=== PATIENT | male | born 1975 | race Caucasian/White ===

== ENCOUNTER 2017-03-12 08:35 | Emergency (ER) | payer BC ==
[2017-03-12 10:21] VITALS: BP 274/124
--- NOTE | 2017-03-12 10:24 | UC ---
Skin Complaint HPI - HPI Summary HPI Summary: PT HAS HAD ITCHY SKIN RASH SINCE 07/2016. SKIN IS IRRITATED, DRY AND ITCH ON HANDS, BACK, ARMS AND LEGS. WENT TO [facility] 12/2016 AND [place] FOR FUNGUS/YEAST WITH NO IMPROVEMENT. HAD SEVERAL TICK BITES LAST SUMMER. WHILE IN ROOM BP WAS FOUND TO BE ELEVATED AND PT DEVELOPED DIZZINESS AND MALAISE. DENIES H/O HTN BUT DOES NOT SEE A DOCTOR. DENIES CP, SOB, NAUSEA. HANDS FEEL SWEATY. - History of Current Complaint Chief Complaint: UCRash Time Seen by Provider: 03/12/17 10:14 Stated Complaint: RASH Hx Obtained From: Patient Onset/Duration: Gradual Onset, Lasting Weeks, Still Present Timing: Constant Onset Severity: Moderate Current Severity: Moderate Pain Intensity: 0 Pain Scale Used: 0-10 Numeric Location: Diffuse Character: Pruritus Aggravating: Nothing Alleviating: Nothing Associated Signs & Symptoms: Positive: Rash. Negative: Fever - Allergy/Home Medications Allergies/Adverse Reactions: Allergies Allergy/AdvReac Type Severity Reaction Status Date / Time No Known Allergies Allergy Verified 02/02/16 12:48 Home Medications: Home Medications Multiple Vitamin [Multi Vitamin] 1 tab PO DAILY 03/12/17 [History Confirmed ] Review of Systems Constitutional: Other - MALAISE Skin: Rash Respiratory: Negative Cardiovascular: Negative Gastrointestinal: Negative Neurological: Other - DIZZY All Other Systems Reviewed And Are Negative: Yes PMH/Surg Hx/FS Hx/Imm Hx Previously Healthy: Yes Endocrine History Of: Denies: Diabetes, Thyroid Disease Cardiovascular History Of: Denies: Cardiac Disorders, Hypertension Respiratory History Of: Denies: COPD, Asthma GI/ History Of: Denies: Ulcer - Surgical History Surgical History: Yes Surgery Procedure, Year, and Place: appendectomy; R knee post-infection - Family History Known Family History: Positive: None Negative: Hypertension, Diabetes - Social History Alcohol Use: Daily Alcohol Amount: 8 drinks per day, beer / wine Substance Use Type: None Smoking Status (MU): Never Smoked Tobacco Physical Exam Triage Information Reviewed: Yes Appearance: No Pain Distress, Well-Nourished, Ill-Appearing - LOOKS UNCOMFORTABLE Vital Signs: Initial Vital Signs Temp 97.7 F 03/12/17 09:42 Pulse 65 03/12/17 09:42 Resp 18 03/12/17 09:42 BP 172/114 03/12/17 09:42 Pulse Ox 100 03/12/17 09:42 Vital Signs Reviewed: Yes Eyes: Positive: Conjunctiva Clear ENT: Positive: Hearing grossly normal Neck: Positive: Supple Respiratory Exam: Normal Abdomen Description: Positive: Nontender, Soft Musculoskeletal: Positive: No Edema Neurological: Positive: Alert Psychological: Positive: Age Appropriate Behavior Diagnostics - EKG Cardiac Rate: NL - 99 BPM Cardiac Rhythm: Sinus: Normal Ectopy: None ST Segment: Normal Course/Dx - Course Course Of Treatment: WHILE HERE BP WAS FOUND TO BE SIGNIFICANTLY ELEVATED AND PT DEVELOPED MALAISE AND DIZZINESS. TO [facility] BY AMBULANCE. - Diagnoses Provider Diagnoses: DIZZY, ELEVATED BP - Physician Notification/Consults Discussed Patient Care With: GLADIS GRIMM Time Discussed With Above Provider: 10:21 - TO [facility] BY AMBULANCE Discharge - Discharge Plan Condition: Stable Disposition: TRANS HIGHER LVL OF CARE FAC Referrals: No Primary Care Phys,NOPCP [Primary Care Provider] -
== END 2017-03-12 10:43 | disposition short-term general hospital (02) ==
LOC: UCEAST 08:35
DX: R42 Dizziness and giddiness (principal); R21 Rash and other nonspecific skin eruption; R03.0 Elevated blood-pressure reading, without diagnosis of hypertension; R53.81 Other malaise
CPT/HCPCS: 93005; 99213; G0463

== ENCOUNTER 2017-03-12 11:02 | Emergency (ER) | payer BC ==
[2017-03-12 11:41] LABS: Hematocrit 49 % (42-52); Hemoglobin 16.7 g/dl (14.0-18.0); Mean Corpuscular HGB Conc 34 g/dl (31-36); Mean Corpuscular Hemoglobin 31 pg (27-31); Mean Corpuscular Volume 91 fL (80-94); Mean Platelet Volume 9 um3 (7.4-10.4); Red Blood Count 5.37 10^6/ul (4.0-5.4); Red Cell Distribution Width 14 % (10.5-15); White Blood Count 7.3 10^3/ul (3.5-10.8)
[2017-03-12] MEDS ORDERED: LORazepam INJ* 2 MG/ML 1 ML VIAL IV ONE (11:49)
[2017-03-12 11:51] LABS: Albumin 4.9 g/dL (3.2-5.2); BUN/Creatinine Ratio 11.9 (8-20); Calcium 10.2 mg/dL (8.6-10.3); EGFR African American 96.4 (>60); EGFR Non-African American 74.9 (>60); Globulin 3.5 g/dL (2-4); Potassium 4.3 mmol/L (3.5-5.0); Total Bilirubin 1.1 mg/dL (0.2-1.0); Total Protein 8.4 g/dL (6.4-8.9)
[2017-03-12 12:05] LABS: T4 6.67 mcg/mL (6.09-12.23)
[2017-03-12 12:21] LABS: Urine Bilirubin Negative (Negative); Urine Glucose Negative (Negative); Urine Nitrite Negative (Negative)
[2017-03-12 14:10] VITALS: BP 143/89
--- NOTE | 2017-03-12 15:06 | ED ---
Mendez Rose Billy, scribed for Raúl Boles MD on 03/12/17 at 1121 . Hypertension - HPI Summary HPI Summary: Patient is a 41 year-old male coming to [facility] from [facility] for evaluation of hypertension and dizziness. He states that he visited [facility] originally for evaluation of an itchy rash on his back and extremities. However, as they were administering tests at the Urgent Care, he began to feel dizzy and near- syncope. At that time, systolic blood pressure was approximately 190. He felt no significant discomfort en route to the ED via EMS. He drinks 8-12 drinks a day. - History of Current Complaint Chief Complaint: EDDizziness Stated Complaint: DIZZY , COMMING FROM [facility] Time Seen by Provider: 03/12/17 11:09 Hx Obtained From: Patient Timing: Constant Reported Blood Pressure Prior To Arrival: 190 systolic Aggravating Factor(s): Other: - as the [facility] staff were administering tests Alleviating Factor(s): Rest Associated Signs & Symptoms: Dizziness - Allergies/Home Medications Allergies/Adverse Reactions: Allergies Allergy/AdvReac Type Severity Reaction Status Date / Time No Known Allergies Allergy Verified 03/12/17 11:17 PMH/Surg Hx/FS Hx/Imm Hx Endocrine/Hematology History: Denies: Hx Diabetes, Hx Thyroid Disease Cardiovascular History: Denies: Hx Hypertension Respiratory History: Denies: Hx Asthma, Hx Chronic Obstructive Pulmonary Disease (COPD) GI History: Denies: Hx Ulcer - Surgical History Surgery Procedure, Year, and Place: appendectomy; R knee post-infection Infectious Disease History: Yes Infectious Disease History: Denies: Hx Clostridium Difficile, Hx Hepatitis, Hx Human Immunodeficiency Virus (HIV), Hx of Known/Suspected MRSA, Hx Shingles, Hx Tuberculosis, Hx Known/ Suspected VRE, Hx Known/Suspected VRSA, History Other Infectious Disease, Traveled Outside the [place] in Last 30 Days - Family History Known Family History: Positive: None Negative: Hypertension, Diabetes - Social History Alcohol Use: Daily Alcohol Amount: 8 drinks per day, beer / wine Substance Use Type: Reports: None Smoking Status (MU): Never Smoked Tobacco Review of Systems Positive: Other - HTN Neurological: Other - dizziness All Other Systems Reviewed And Are Negative: Yes Physical Exam Triage Information Reviewed: Yes Vital Signs On Initial Exam: Initial Vitals Temp Pulse Resp BP Pulse Ox 98.9 F 80 18 183/107 100 03/12/17 11:11 03/12/17 11:11 03/12/17 11:11 03/12/17 11:11 03/12/17 11:11 Vital Signs Reviewed: Yes Appearance: Positive: Well-Appearing, No Pain Distress Skin: Positive: Warm, Skin Color Reflects Adequate Perfusion Head/Face: Positive: Normal Head/Face Inspection Eyes: Positive: Normal ENT: Positive: Normal ENT inspection Neck: Positive: Supple, Nontender Respiratory/Lung Sounds: Positive: Clear to Auscultation, Breath Sounds Present Cardiovascular: Positive: RRR Abdomen Description: Positive: Nontender, Soft Musculoskeletal: Positive: Normal Neurological: Positive: Sensory/Motor Intact, Alert, Oriented to Person Place, Time, Other - Fine intention tremor. Psychiatric: Positive: Affect/Mood Appropriate - [place] Coma Scale Coma Scale Total: 15 Diagnostics - Vital Signs Vital Signs Temp Pulse Resp BP Pulse Ox 03/12/17 11:13 98.9 F 81 18 183/107 100 03/12/17 11:11 98.9 F 80 18 183/107 100 - Laboratory Lab Results: Lab Results 03/12/17 03/12/17 03/12/17 Range/Units 10:26 10:26 10:26 WBC 7.3 (3.5-10.8) 10^3/ul RBC 5.37 (4.0-5.4) 10^6/ul Hgb 16.7 (14.0-18.0) g/dl Hct 49 (42-52) % MCV 91 (80-94) fL MCH 31 (27-31) pg MCHC 34 (31-36) g/dl RDW 14 (10.5-15) % Plt Count 230 (150-450) 10^3/ul MPV 9 (7.4-10.4) um3 Neut % (Auto) 63.0 (38-83) % Lymph % (Auto) 18.6 L (25-47) % [place] % (Auto) 10.8 H (1-9) % Eos % (Auto) 5.2 (0-6) % Baso % (Auto) 2.4 H (0-2) % Absolute Neuts (auto) 4.6 (1.5-7.7) 10^3/ul Absolute Lymphs (auto) 1.3 (1.0-4.8) 10^3/ul Absolute Monos (auto) 0.8 (0-0.8) 10^3/ul Absolute Eos (auto) 0.4 (0-0.6) 10^3/ul Absolute Basos (auto) 0.2 (0-0.2) 10^3/ul Absolute Nucleated RBC 0.02 10^3/ul Nucleated RBC % 0.3 INR (Anticoag Therapy) 0.98 (0.89-1.11) Sodium 133 (133-145) mmol/L Potassium 4.3 (3.5-5.0) mmol/L Chloride 97 L (101-111) mmol/L Carbon Dioxide 25 (22-32) mmol/L Anion Gap 11 (2-11) mmol/L BUN 13 (6-24) mg/dL Creatinine 1.09 (0.67-1.17) mg/dL Est GFR ( Amer) 96.4 (>60) Est GFR (Non-Af Amer) 74.9 (>60) BUN/Creatinine Ratio 11.9 (8-20) Glucose 109 H (70-100) mg/dL Lactic Acid (0.5-2.0) mmol/L Calcium 10.2 (8.6-10.3) mg/dL Total Bilirubin 1.10 H (0.2-1.0) mg/dL AST 35 (13-39) U/L ALT 53 H (7-52) U/L Alkaline Phosphatase 14 L (34-104) U/L Troponin I 0.00 (<0.04) ng/mL Total Protein 8.4 (6.4-8.9) g/dL Albumin 4.9 (3.2-5.2) g/dL Globulin 3.5 (2-4) g/dL Albumin/Globulin Ratio 1.4 (1-3) Thyroxine (T4) 6.67 (6.09-12.23) mcg/mL Urine Color Urine Appearance Urine pH (5-9) Ur Specific [place] (1.010-1.030) Urine Protein (Negative) Urine Ketones (Negative) Urine Blood (Negative) Urine Nitrate (Negative) Urine Bilirubin (Negative) Urine Urobilinogen (Negative) Ur Leukocyte Esterase (Negative) Urine Glucose (Negative) 03/12/17 03/12/17 Range/Units 10:26 12:00 WBC (3.5-10.8) 10^3/ul RBC (4.0-5.4) 10^6/ul Hgb (14.0-18.0) g/dl Hct (42-52) % MCV (80-94) fL MCH (27-31) pg MCHC (31-36) g/dl RDW (10.5-15) % Plt Count (150-450) 10^3/ul MPV (7.4-10.4) um3 Neut % (Auto) (38-83) % Lymph % (Auto) (25-47) % [place] % (Auto) (1-9) % Eos % (Auto) (0-6) % Baso % (Auto) (0-2) % Absolute Neuts (auto) (1.5-7.7) 10^3/ul Absolute Lymphs (auto) (1.0-4.8) 10^3/ul Absolute Monos (auto) (0-0.8) 10^3/ul Absolute Eos (auto) (0-0.6) 10^3/ul Absolute Basos (auto) (0-0.2) 10^3/ul Absolute Nucleated RBC 10^3/ul Nucleated RBC % INR (Anticoag Therapy) (0.89-1.11) Sodium (133-145) mmol/L Potassium (3.5-5.0) mmol/L Chloride (101-111) mmol/L Carbon Dioxide (22-32) mmol/L Anion Gap (2-11) mmol/L BUN (6-24) mg/dL Creatinine (0.67-1.17) mg/dL Est GFR ( Amer) (>60) Est GFR (Non-Af Amer) (>60) BUN/Creatinine Ratio (8-20) Glucose (70-100) mg/dL Lactic Acid 1.6 (0.5-2.0) mmol/L Calcium (8.6-10.3) mg/dL Total Bilirubin (0.2-1.0) mg/dL AST (13-39) U/L ALT (7-52) U/L Alkaline Phosphatase (34-104) U/L Troponin I (<0.04) ng/mL Total Protein (6.4-8.9) g/dL Albumin (3.2-5.2) g/dL Globulin (2-4) g/dL Albumin/Globulin Ratio (1-3) Thyroxine (T4) (6.09-12.23) mcg/mL Urine Color Straw Urine Appearance Clear Urine pH 8.0 (5-9) Ur Specific [place] 1.005 L (1.010-1.030) Urine Protein Negative (Negative) Urine Ketones Trace H (Negative) Urine Blood Negative (Negative) Urine Nitrate Negative (Negative) Urine Bilirubin Negative (Negative) Urine Urobilinogen Negative (Negative) Ur Leukocyte Esterase Negative (Negative) Urine Glucose Negative (Negative) Result Diagrams: 03/12/17 10:26 03/12/17 10:26 Lab Statement: Any lab studies that have been ordered have been reviewed, and results considered in the medical decision making process. - EKG 1113 EKG Interpretation: NSR 82 bpm, no STEMI Hypertension Course/Dx - Course Course Of Treatment: Mr. Faith reportedly had hives that resolved with benadryl. His itching certainly did. He was quite hypertensive at [facility] and modeerately hypeertensive on arrival here. He drinks about a twelve pack a day (he drank less than half of that yesterday) and is a bit tremulous here. I gave him ativan while checking labs and such and he improved. His BP and HR both fell. We talked about his drinking and I offered to try to get him admitted medically if he were willing to quit but he refused. i recommended F/U. - Diagnoses Provider Diagnoses: Allergic reaction, Alcohol abuse Discharge - Discharge Plan Condition: Stable Disposition: HOME Patient Education Materials: Abuse of Alcohol (ED), General Allergic Reaction ( ED) Referrals: [facility] PHYSICIAN REFERRAL [Outside] The documentation as recorded by the Mendez galo Billy accurately reflects the service I personally performed and the decisions made by me, Raúl Boles MD.
== END 2017-03-12 14:15 | disposition home or self-care (01) ==
LOC: ED 11:02
DX: T78.40XA Allergy, unspecified, initial encounter (principal); I10 Essential (primary) hypertension; R42 Dizziness and giddiness; X58.XXXA Exposure to other specified factors, initial encounter; F10.10 Alcohol abuse, uncomplicated
CPT/HCPCS: 36415; 80053; 81003; 83605; 84436; 84484; 85025; 85610; 93005; 99282; J2060

== ENCOUNTER 2018-01-03 16:02 | Emergency (ER) | payer BC ==
[2018-01-03] MEDS ORDERED: Famotidine IV* 10 MG/ML 2 ML (20 mg) IV SLOW PU ONE (16:17)
[2018-01-03] MEDS ORDERED: Acetaminophen TAB* 325 MG PO ONE (16:53)
[2018-01-03 17:18] LABS: ABS Basophils 0.1 10^3/ul (0-0.2); ABS Eosinophils 0.2 10^3/ul (0-0.6); ABS Lymphocytes 0.9 10^3/ul (1.0-4.8); ABS Monocytes 0.2 10^3/ul (0-0.8); ABS Neutrophils 10.2 10^3/ul (1.5-7.7); ABS Nucleated RBC 0 10^3/ul; Eosinophil % 1.3 % (0-6); Hematocrit 42 % (42-52); Hemoglobin 14.5 g/dl (14.0-18.0); Lymphocyte % 7.6 % (25-47); Mean Corpuscular HGB Conc 35 g/dl (31-36); Mean Corpuscular Hemoglobin 32 pg (27-31); Mean Corpuscular Volume 92 fL (80-94); Mean Platelet Volume 8 um3 (7.4-10.4); Nucleated Red Blood Cells % 0; Platelet Count 223 10^3/ul (150-450); Red Blood Count 4.55 10^6/ul (4.0-5.4); Red Cell Distribution Width 13 % (10.5-15); White Blood Count 11.6 10^3/ul (3.5-10.8)
[2018-01-03 17:28] LABS: INR 0.94 (0.77-1.02)
[2018-01-03 17:35] LABS: EGFR Non-African American 76.2 (>60)
--- NOTE | 2018-01-03 17:46 | RAD ---
HISTORY: Allergic reaction, hypertension COMPARISONS: July 20, 2010 VIEWS: 1: frontal portable view of the chest at 5:10 PM FINDINGS: LINES AND TUBES: None. CARDIOMEDIASTINAL SILHOUETTE: The cardiomediastinal silhouette is normal for portable technique. PLEURA: The costophrenic angles are sharp. No pleural abnormalities are noted. LUNG PARENCHYMA: There is faint alveolar opacification of the right upper lung. ABDOMEN: The upper abdomen is clear. There is no subphrenic gas. BONES AND SOFT TISSUES: No bone or soft tissue abnormalities are noted. IMPRESSION: RIGHT UPPER LUNG ATELECTASIS VERSUS EARLY CONSOLIDATION. RECOMMEND FOLLOW-UP UNTIL RESOLUTION TO EXCLUDE UNDERLYING PULMONARY PARENCHYMAL PATHOLOGY.
[2018-01-03 19:48] LABS: Urine Appearance Clear; Urine Blood Negative (Negative); Urine Color Straw; Urine Ketones Trace (Negative); Urine Protein Negative (Negative); Urine Specific Gravity 1.009 (1.010-1.030); Urine Urobilinogen Negative (Negative)
[2018-01-03] MEDS ORDERED: Atenolol TAB* 25 MG PO ONE (20:13)
[2018-01-03] MEDS ORDERED: LORazepam TAB(*) 1 MG PO ONE (20:18)
[2018-01-03 21:20] VITALS: BP 152/92
--- NOTE | 2018-01-04 20:42 | ED ---
Vishnu Rose Natalie, scribed for Cintia Merino MD on 01/03/18 at 1704 . Dizziness - HPI Summary HPI Summary: The patient is 42 y/o M BIBA to ED c/o dizziness. 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 He and his went to [employer], where he was having various wine samples. He felt unwell, especially after the third one. He felt dizzy and lightheaded while driving home, so he pulled over and his drove. When he returned to the hotel, he tried to nap but couldnt fall asleep because he was too uncomfortable, noise was bothering him, and he had bad indigestion. He felt his heart rate increase with palpitations, and had CP. He says his arms felt like they were in a vice, and he couldnt feel his left arm. He then started to shake uncontrollably, and thats when his called 911. His said he was alert and oriented the whole time, and he was able to answer all the questions. He was able to see without LOC, but his vision was limited as his eyes were dilated. He also feels hot, and he has a rash all over his body. He currently has a headache and feels anxious. The patient denies URI symptoms, swollen/itchy throat, and ear ache. He was not wheezing today, which he is aware of how that feels because that is his allergic reaction to cats. He was last in an ambulance a year ago for a similar reason with a rash, but was not as severe and was easily treated with Benadryl. He has hx of HTN, but does not take the medication because he claims it gives him headaches. He doesnt take any other daily medications. He used cannabis yesterday. He has had an appendectomy. His PCP is Dr. Haas. Upon exiting room BP is 156/101, HR 112 sinus tachycardia, O2sat 99% on room air, respirations 16. - History Of Current Complaint Chief Complaint: EDAllergicReaction Stated Complaint: ALLERGIC REACTION Time Seen by Provider: 01/03/18 16:16 Hx Obtained From: Patient Onset/Duration: Still Present, Suddenly Timing: Constant Severity Initially: Severe Severity Currently: Moderate Character: Lightheaded, Dizzy Aggravating Factor(s): Nothing Alleviating Factor(s): Nothing Associated Signs And Symptoms: Positive: Chest Pain, Palpitations, Other: - rash all abdiaziz body, headache, unable to feel left arm, dilated eyes, no LOC, no URI, no ear ache, no throat symptoms - Allergies/Home Medications Allergies/Adverse Reactions: Allergies Allergy/AdvReac Type Severity Reaction Status Date / Time No Known Allergies Allergy Verified 03/12/17 11:17 PMH/Surg Hx/FS Hx/Imm Hx Previously Healthy: Yes Endocrine/Hematology History: Denies: Hx Diabetes, Hx Thyroid Disease Cardiovascular History: Reports: Hx Hypertension Respiratory History: Denies: Hx Asthma, Hx Chronic Obstructive Pulmonary Disease (COPD) GI History: Denies: Hx Ulcer - Surgical History Surgery Procedure, Year, and Place: appendectomy; R knee post-infection Infectious Disease History: No Infectious Disease History: Denies: Hx Clostridium Difficile, Hx Hepatitis, Hx Human Immunodeficiency Virus (HIV), Hx of Known/Suspected MRSA, Hx Shingles, Hx Tuberculosis, Hx Known/ Suspected VRE, Hx Known/Suspected VRSA, History Other Infectious Disease, Traveled Outside the [place] in Last 30 Days - Family History Known Family History: Positive: Hypertension Negative: Diabetes - Social History Alcohol Use: Daily Alcohol Amount: 8 drinks per day, beer / wine Substance Use Type: Reports: None Smoking Status (MU): Never Smoked Tobacco Review of Systems Positive: Other - noise bothering him. Negative: Sore Throat, Ear Ache Positive: Palpitations, Chest Pain Positive: Other - indigestion Neurological: Other - dizzy, lightheadedness Positive: Headache Positive: Anxious All Other Systems Reviewed And Are Negative: Yes Physical Exam Triage Information Reviewed: Yes Vital Signs On Initial Exam: Initial Vitals Temp Pulse Resp BP Pulse Ox 97.7 F 108 20 171/93 100 01/03/18 16:10 01/03/18 16:10 01/03/18 16:10 01/03/18 16:10 01/03/18 16:10 Vital Signs Reviewed: Yes Appearance: Positive: No Pain Distress, Well-Nourished, Ill-Appearing Skin: Positive: Warm, Other - erythematous rash on face, neck, and chest Head/Face: Positive: Normal Head/Face Inspection Eyes: Positive: Conjunctiva Clear ENT: Positive: Normal ENT inspection Neck: Positive: Supple Respiratory/Lung Sounds: Positive: Other - Lungs clear, Normal breath sounds, no respiratory distress Cardiovascular: Positive: Other - RRR, No murmur, pulses normal, brisk capillary refill Abdomen Description: Positive: Nontender, Soft Bowel Sounds: Positive: Present Musculoskeletal: Positive: Strength/ROM Intact Neurological: Positive: Other - Alert, muscle tone normal, facial symmetry, speech normal, sensory/motor intact Psychiatric: Positive: Normal Diagnostics - Vital Signs Vital Signs Temp Pulse Resp BP Pulse Ox 01/03/18 16:21 103 22 171/93 100 01/03/18 16:10 97.7 F 108 20 171/93 100 - Laboratory Lab Results: Lab Results 01/03/18 01/03/18 01/03/18 Range/Units 17:09 17:09 17:09 WBC 11.6 H (3.5-10.8) 10^3/ul RBC 4.55 (4.0-5.4) 10^6/ul Hgb 14.5 (14.0-18.0) g/dl Hct 42 (42-52) % MCV 92 (80-94) fL MCH 32 H (27-31) pg MCHC 35 (31-36) g/dl RDW 13 (10.5-15) % Plt Count 223 (150-450) 10^3/ul MPV 8 (7.4-10.4) um3 Neut % (Auto) 88.4 H (38-83) % Lymph % (Auto) 7.6 L (25-47) % [place] % (Auto) 2.1 (1-9) % Eos % (Auto) 1.3 (0-6) % Baso % (Auto) 0.6 (0-2) % Absolute Neuts (auto) 10.2 H (1.5-7.7) 10^3/ul Absolute Lymphs (auto) 0.9 L (1.0-4.8) 10^3/ul Absolute Monos (auto) 0.2 (0-0.8) 10^3/ul Absolute Eos (auto) 0.2 (0-0.6) 10^3/ul Absolute Basos (auto) 0.1 (0-0.2) 10^3/ul Absolute Nucleated RBC 0 10^3/ul Nucleated RBC % 0 INR (Anticoag Therapy) 0.94 (0.77-1.02) D-Dimer, Quantitative < 200 (Less Than 230) ng/mL Sodium 138 (133-145) mmol/L Potassium 3.7 (3.5-5.0) mmol/L Chloride 103 (101-111) mmol/L Carbon Dioxide 20 L (22-32) mmol/L Anion Gap 15 H (2-11) mmol/L BUN 11 (6-24) mg/dL Creatinine 1.07 (0.67-1.17) mg/dL Est GFR ( Amer) 97.9 (>60) Est GFR (Non-Af Amer) 76.2 (>60) BUN/Creatinine Ratio 10.3 (8-20) Glucose 103 H (70-100) mg/dL Lactic Acid (0.5-2.0) mmol/L Calcium 9.1 (8.6-10.3) mg/dL Total Bilirubin 0.40 (0.2-1.0) mg/dL AST 26 (13-39) U/L ALT 25 (7-52) U/L Alkaline Phosphatase 14 L (34-104) U/L Total Creatine Kinase 158 (10-223) U/L CK-MB (CK-2) 1.6 (0.6-6.3) ng/mL Troponin I 0.00 (<0.04) ng/mL Total Protein 7.4 (6.4-8.9) g/dL Albumin 4.3 (3.2-5.2) g/dL Globulin 3.1 (2-4) g/dL Albumin/Globulin Ratio 1.4 (1-3) TSH 1.50 (0.34-5.60) mcIU/mL Thyroxine (T4) 3.73 L (6.09-12.23) mcg/mL Urine Color Urine Appearance Urine pH (5-9) Ur Specific [place] (1.010-1.030) Urine Protein (Negative) Urine Ketones (Negative) Urine Blood (Negative) Urine Nitrate (Negative) Urine Bilirubin (Negative) Urine Urobilinogen (Negative) Ur Leukocyte Esterase (Negative) Urine Glucose (Negative) Urine Opiates Screen (None Detect) Ur Barbiturates Screen (None Detect) Ur Phencyclidine Scrn (None Detect) Ur Amphetamines Screen (None Detect) U Benzodiazepines Scrn (None Detect) Urine Cocaine Screen (None Detect) U Cannabinoids Screen (None Detect) Serum Alcohol 22 H (<10) mg/dL Influenza A (Rapid) (Negative) Influenza B (Rapid) (Negative) 01/03/18 01/03/18 01/03/18 Range/Units 17:09 19:25 19:25 WBC (3.5-10.8) 10^3/ul RBC (4.0-5.4) 10^6/ul Hgb (14.0-18.0) g/dl Hct (42-52) % MCV (80-94) fL MCH (27-31) pg MCHC (31-36) g/dl RDW (10.5-15) % Plt Count (150-450) 10^3/ul MPV (7.4-10.4) um3 Neut % (Auto) (38-83) % Lymph % (Auto) (25-47) % Towner % (Auto) (1-9) % Eos % (Auto) (0-6) % Baso % (Auto) (0-2) % Absolute Neuts (auto) (1.5-7.7) 10^3/ul Absolute Lymphs (auto) (1.0-4.8) 10^3/ul Absolute Monos (auto) (0-0.8) 10^3/ul Absolute Eos (auto) (0-0.6) 10^3/ul Absolute Basos (auto) (0-0.2) 10^3/ul Absolute Nucleated RBC 10^3/ul Nucleated RBC % INR (Anticoag Therapy) (0.77-1.02) D-Dimer, Quantitative (Less Than 230) ng/mL Sodium (133-145) mmol/L Potassium (3.5-5.0) mmol/L Chloride (101-111) mmol/L Carbon Dioxide (22-32) mmol/L Anion Gap (2-11) mmol/L BUN (6-24) mg/dL Creatinine (0.67-1.17) mg/dL Est GFR ( Amer) (>60) Est GFR (Non-Af Amer) (>60) BUN/Creatinine Ratio (8-20) Glucose (70-100) mg/dL Lactic Acid 3.4 H* (0.5-2.0) mmol/L Calcium (8.6-10.3) mg/dL Total Bilirubin (0.2-1.0) mg/dL AST (13-39) U/L ALT (7-52) U/L Alkaline Phosphatase (34-104) U/L Total Creatine Kinase (10-223) U/L CK-MB (CK-2) (0.6-6.3) ng/mL Troponin I (<0.04) ng/mL Total Protein (6.4-8.9) g/dL Albumin (3.2-5.2) g/dL Globulin (2-4) g/dL Albumin/Globulin Ratio (1-3) TSH (0.34-5.60) mcIU/mL Thyroxine (T4) (6.09-12.23) mcg/mL Urine Color Straw Urine Appearance Clear Urine pH 6.0 (5-9) Ur Specific [place] 1.009 L (1.010-1.030) Urine Protein Negative (Negative) Urine Ketones Trace H (Negative) Urine Blood Negative (Negative) Urine Nitrate Negative (Negative) Urine Bilirubin Negative (Negative) Urine Urobilinogen Negative (Negative) Ur Leukocyte Esterase Negative (Negative) Urine Glucose Negative (Negative) Urine Opiates Screen None detected (None Detect) Ur Barbiturates Screen None detected (None Detect) Ur Phencyclidine Scrn None detected (None Detect) Ur Amphetamines Screen None detected (None Detect) U Benzodiazepines Scrn None detected (None Detect) Urine Cocaine Screen None detected (None Detect) U Cannabinoids Screen Presumptive positive H (None Detect) Serum Alcohol (<10) mg/dL Influenza A (Rapid) (Negative) Influenza B (Rapid) (Negative) 01/03/18 Range/Units 21:43 WBC (3.5-10.8) 10^3/ul RBC (4.0-5.4) 10^6/ul Hgb (14.0-18.0) g/dl Hct (42-52) % MCV (80-94) fL MCH (27-31) pg MCHC (31-36) g/dl RDW (10.5-15) % Plt Count (150-450) 10^3/ul MPV (7.4-10.4) um3 Neut % (Auto) (38-83) % Lymph % (Auto) (25-47) % Towner % (Auto) (1-9) % Eos % (Auto) (0-6) % Baso % (Auto) (0-2) % Absolute Neuts (auto) (1.5-7.7) 10^3/ul Absolute Lymphs (auto) (1.0-4.8) 10^3/ul Absolute Monos (auto) (0-0.8) 10^3/ul Absolute Eos (auto) (0-0.6) 10^3/ul Absolute Basos (auto) (0-0.2) 10^3/ul Absolute Nucleated RBC 10^3/ul Nucleated RBC % INR (Anticoag Therapy) (0.77-1.02) D-Dimer, Quantitative (Less Than 230) ng/mL Sodium (133-145) mmol/L Potassium (3.5-5.0) mmol/L Chloride (101-111) mmol/L Carbon Dioxide (22-32) mmol/L Anion Gap (2-11) mmol/L BUN (6-24) mg/dL Creatinine (0.67-1.17) mg/dL Est GFR ( Amer) (>60) Est GFR (Non-Af Amer) (>60) BUN/Creatinine Ratio (8-20) Glucose (70-100) mg/dL Lactic Acid (0.5-2.0) mmol/L Calcium (8.6-10.3) mg/dL Total Bilirubin (0.2-1.0) mg/dL AST (13-39) U/L ALT (7-52) U/L Alkaline Phosphatase (34-104) U/L Total Creatine Kinase (10-223) U/L CK-MB (CK-2) (0.6-6.3) ng/mL Troponin I (<0.04) ng/mL Total Protein (6.4-8.9) g/dL Albumin (3.2-5.2) g/dL Globulin (2-4) g/dL Albumin/Globulin Ratio (1-3) TSH (0.34-5.60) mcIU/mL Thyroxine (T4) (6.09-12.23) mcg/mL Urine Color Urine Appearance Urine pH (5-9) Ur Specific [place] (1.010-1.030) Urine Protein (Negative) Urine Ketones (Negative) Urine Blood (Negative) Urine Nitrate (Negative) Urine Bilirubin (Negative) Urine Urobilinogen (Negative) Ur Leukocyte Esterase (Negative) Urine Glucose (Negative) Urine Opiates Screen (None Detect) Ur Barbiturates Screen (None Detect) Ur Phencyclidine Scrn (None Detect) Ur Amphetamines Screen (None Detect) U Benzodiazepines Scrn (None Detect) Urine Cocaine Screen (None Detect) U Cannabinoids Screen (None Detect) Serum Alcohol (<10) mg/dL Influenza A (Rapid) Negative (Negative) Influenza B (Rapid) Negative (Negative) Result Diagrams: 18 17:09 01/03/18 17:09 Lab Statement: Any lab studies that have been ordered have been reviewed, and results considered in the medical decision making process. - EKG 16:54 Cardiac Rate: Tachycardia EKG Rhythm: Sinus Tachycardia ST Segment: Non-Specific Ectopy: None EKG Interpretation: Nml AVIVCT. Nml QTc. Negative axis -3. EKG Comparison: No Significant Change - compared to EKG from 03/12/17 Re-Evaluation - Re-Evaluation First Eval Re-Evaluation Time: 17:00 - Per nurse, the patient's HR is in the 140s. Change: Worse - , Dizzy Course/Dx - Course Course Of Treatment: Allergies notes. Pt medications reviewed during this visit. High blood pressure noted. EMS gave the patient Benadryl, steroids, and ephinephrine BASEBALL [employer]OVE STUFFER. In the ED, the patient was given pepcid IV and additional IV fluids. Rapid rhythm observed on monitor at 16:54 based on monitor print out of tracing, shows sinus tachycardia at 132 BPM. I am aware of lactate of 3.4 at 17: 45. - Diagnoses Differential Diagnosis/HQI/PQRI: Anxiety, Dysrhythmia, Hyperventilation, Medication Reaction, Metabolic Abnormality, Other - allergic reaction, anaphylaxis, hypertensive crisis, arrhythmia Provider Diagnoses: Allergic reaction, Hypertension, poor control, Sinus tachycardia, Anxiety, Alcohol abuse Discharge - Discharge Plan Condition: Stable Disposition: HOME Patient Education Materials: At-Risk Alcohol Use (ED), Hypertension (ED), General Allergic Reaction (ED), Atelectasis (ED) Forms: *Work Release Referrals: German Haas MD [Primary Care Provider] - 2 Days Additional Instructions: We have given you instructions for allergic reaction, because this is what you were treated for in the ambulance based on your symptoms of dizziness and not feeling well and then a rash noted on your face and chest by the ambulance. Dr. Merino is not sure if you had a true allergic reaction or not. You were treated by the ambulance with epinephrine, benadryl, steroids and you were given pepcid in the ER to complete your treatment for possible allergic reaction. You noted that you were feeling very anxious and in the ER you heart rate was tachycardic (fast) and your blood pressure was elevated. Some blood pressures that were noted in the ER were 178/98, 156/105, 177/108, all very elevated. The fastest heart rate we documented was 144, which was sinus tachycardia on the EKG and lasted only seconds, but your heart rate was often above 100 during your time in the ER. Your lactic acid was elevated at 3.[address] Merino felt this was from having received the epinephrine. Your troponin, the enzyme that indicates possible heart damage was zero. Dr. Merino gave you copies of all of your labs and CXR that you should bring to Dr. Haas with these discharge instructions. Dr Merino gave you one dose of atenolol 12.5 mg orally for the hypertension and tachycardia. You will need definite follow up with Dr. Haas and re-initiation of anti-hypertensive treatment. Your chest xray showed atelectasis vs consolidation, and you did not have any acute upper respiratory symptoms or fever, so Dr. Merino felt this was more likely atelectasis, but it needs definite follow up with Dr. Haas. Your flu swab was negative. You alcohol was higher than you expected, at 22, and we discussed decreasing your alcohol intake with Dr. Haas's assistance. Dr. Merino dispensed one dose of ativan 0.5mg that you may take tonight or as needed for severe anxiety. Of note, Dr. Merino never heard wheezes or saw any hives. The redness in your face and chest diminished quickly after presentation to the ER, after the ambulance meds and the pepcid were given. Return to the ER if you have any new or worsening symptoms, including but not limited to, fever, chest pain, cough, dizziness, rash, or vomiting. The documentation as recorded by the Vishnu galo Natalie accurately reflects the service I personally performed and the decisions made by me, Cintia Merino MD.
== END 2018-01-03 21:34 | disposition home or self-care (01) ==
LOC: ED 16:02
DX: T78.40XA Allergy, unspecified, initial encounter (principal); I10 Essential (primary) hypertension; R00.0 Tachycardia, unspecified; F41.9 Anxiety disorder, unspecified; F10.10 Alcohol abuse, uncomplicated; J98.4 Other disorders of lung
CPT/HCPCS: 36415; 71045; 80053; 80307; 80320; 81003; 82550; 82553; 83605; 84436; 84443; 84484; 85025; 85379; 85610; 87502; 93005; 96374; 99284; A9270-GY; G0480